=== PATIENT | male | born 1960 | race Caucasian/White ===

== ENCOUNTER 2017-02-06 11:13 | Day surgery (SDC) | payer OTHER ==
[2017-02-05 09:19] VITALS: BMI 33.7
[2017-02-06] MEDS ORDERED: PROPOFOL 20 ML ONE ×2 (11:16)
[2017-02-06 13:33] VITALS: BP 121/81; PULSE 98; TEMP 97.9
--- NOTE | 2017-02-08 15:22 | PATH ---
Surgical Pathology Report Patient Name: ALFIE JASSO [facility]. Rec. #: [id number] /Age/Gender: 1960 (Age: 56) / M Account: [id number] [facility] Taken: 02/06/2017 Received: 02/06/2017 Reported: 02/08/2017 Physicians: Анна Novak M.D. Specimen(s) Received A: BX ANTRUM B: BX GASTRIC C: BX GE JUNCTION Clinical History GERD, history of colonic polyp Gastritis, gastric polyp Final Diagnosis A. ANTRUM, BIOPSY: MILD CHRONIC GASTRITIS. IMMUNOSTAIN IS NEGATIVE FOR H. PYLORI MICROORGANISMS. B. GASTRIC POLYP, BIOPSY: MILD CHRONIC GASTRITIS. IMMUNOSTAIN IS NEGATIVE FOR H. PYLORI ORGANISMS. C. GE JUNCTION, BIOPSY: COLUMNAR (GASTRIC CARDIA-TYPE MUCOSA) SHOWING MILD CHRONIC INFLAMMATION. NEGATIVE FOR INTESTINAL METAPLASIA. Electronically Signed Gregoria Otto M.D. Gross Description A. Received in formalin, labeled "antrum" is a sanchez, irregular portion of soft tissue measuring 0.5 cm. in greatest dimension. The specimen is submitted in toto in one cassette. B. Received in formalin, labeled "gastric body polyp" are 2 sanchez, irregular portions of soft tissue measuring 0.2 and 0.7 cm. in greatest dimension. The specimens are submitted in toto in one cassette. C. Received in formalin, labeled "GE junction" is a sanchez, irregular portion of soft tissue measuring 3 cm. in greatest dimension. The specimen is submitted in toto in one cassette. DL02/07/2017 saudi02/07/2017
== END 2017-02-06 13:30 | disposition home or self-care (01) ==
LOC: FASU-ENDO 11:13
PROVIDERS: ATTEND Internal Medicine Gastroenterology
PROC: 0DB68ZZ Excision of Stomach, Via Natural or Artificial Opening Endoscopic (ICD-10-PCS; 2017-02-06)
PROC: 0DJD8ZZ Inspection of Lower Intestinal Tract, Via Natural or Artificial Opening Endoscopic (ICD-10-PCS; principal; 2017-02-06 12:26)
PROC: 0DB98ZZ Excision of Duodenum, Via Natural or Artificial Opening Endoscopic (ICD-10-PCS; 2017-02-06 12:26)
DX: Z86.010 Personal history of colon polyps (principal); K57.30 Diverticulosis of large intestine without perforation or abscess without bleeding; K29.50 Unspecified chronic gastritis without bleeding; K22.9 Disease of esophagus, unspecified; K64.8 Other hemorrhoids
CPT/HCPCS: 88305-TC; 88342-TC

== ENCOUNTER 2022-09-25 09:49 | Day surgery (SDC) | payer OTHER ==
[2022-09-21 10:26] VITALS: BMI 32.3
[2022-09-25 13:38] VITALS: PULSE 82; RESP 17
[2022-09-25 13:42] VITALS: BP 132/78; TEMP 97.6
== END 2022-09-25 12:00 | disposition home or self-care (01) ==
LOC: FASU-ENDO 09:49
PROVIDERS: ATTEND Internal Medicine Gastroenterology
PROC: 0DJD8ZZ Inspection of Lower Intestinal Tract, Via Natural or Artificial Opening Endoscopic (ICD-10-PCS; principal; 2022-09-25 10:38)
DX: Z12.11 Encounter for screening for malignant neoplasm of colon (principal); K64.1 Second degree hemorrhoids; K64.8 Other hemorrhoids
CPT/HCPCS: 82962